=== PATIENT | female | born 1985 | race Caucasian/White ===

== ENCOUNTER 2016-06-13 01:01 | Emergency (ER) | payer MEDICAID ==
[~2016-06-13] VITALS: Ht 157.5 cm; Wt 82.0 kg
[2016-06-13] MEDS ORDERED: PENICILLIN G BENZATHINE 1,200,000 UNITS/2ML SYR IM ONE (04:30)
[2016-06-13] MEDS ORDERED: KETOROLAC 60MG/2ML VIAL IM ONE (04:30)
[2016-06-13 05:45] VITALS: BP 121/74
== END 2016-06-13 06:05 | disposition home or self-care (01) ==
LOC: ER 01:01
DX: J02.0 Streptococcal pharyngitis (principal); E05.90 Thyrotoxicosis, unspecified without thyrotoxic crisis or storm; Z88.8 Allergy status to other drugs, medicaments and biological substances; Z88.6 Allergy status to analgesic agent
CPT/HCPCS: 96372; 99284; J0561; J1885; Z7610